=== PATIENT | male | born 1980 | race African-American/Black ===

== ENCOUNTER 2018-12-29 19:37 | Emergency (ER) | payer BC ==
[~2018-12-29] VITALS: Ht 195.6 cm; Wt 111.1 kg
[2018-12-29 19:50] VITALS: BP 146/90
--- NOTE | 2018-12-29 19:50 | NUR ---
ED Nurse Note: Pt arrived ED from home, c/o had a small laceration on his lower chin due to fell when he was playing sports today. Pt is A/O X4, Vital signs stable at this time, waiting for orders.
--- NOTE | 2018-12-29 20:04 | Emergency Room Report ---
History of Present Illness General Chief Complaint: Laceration Source: Patient Present Illness HPI Patient hit in the chin playing basketball. There is a loss of consciousness. He injured the left side of his tongue. His teeth are stable. Burning pain there. His tetanus is up-to-date. Reduce scar there from previous injury similar to this. 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 Allergies: Coded Allergies: PENICILLINS (Verified Allergy, Unknown, 12/29/18) Nursing Documentation-[facility] Past Medical History: No Stated History Physical Exam Vital Signs Date Time Temp Pulse Resp B/P (MAP) Pulse Ox O2 Delivery O2 Flow Rate FiO2 12/29/18 19:44 97.9 68 18 146/90 (108) 97 Procedures Laceration/Wound Repair Laceration/Wound Repair : Consent: Verbal Wound Location: face Wound's Depth, Shape: superficial Wound Length (cm): 3 - 2.5 Wound Explored: clean Irrigated w/ Saline (ccs): 10 Betadine Prep?: Yes Anesthesia: Lidocaine w/ Epi Volume Anesthetic (ccs): 0 - 0.5 Wound Repaired With: sutures Suture Size/Type: 6:0, proline Layer Closure?: No Sterile Dressing Applied?: Yes Splint Applied?: No Patient Tolerated: Well Complications: None Medical Decision Making Diagnostic Impression: Primary Impression: Chin laceration Qualified Codes: S01.81XA - Laceration without foreign body of other part of head, initial encounter ER Course Patient has a chin laceration. There is no loss of consciousness. The laceration needs surgical repair. The patient's tetanus is up-to-date. Tylenol will be given. Sutured. Tolerated well. Discussed treatment plan. is stable for outpatient observation and treatment. Status: improved Disposition: HOME, SELF-CARE Condition: Improved Scripts No Active Prescriptions or Reported Meds Antwan Israel MD Dec 29, 2018 20:04
[2018-12-29] MEDS ORDERED: Lidocaine 1% 10mg/ml/Epi 0.005mg/ml 30ml vial INJ ONE (20:15)
[2018-12-29] MEDS ORDERED: Bacitracin Oint UD TOPIC ONE (20:15)
--- NOTE | 2018-12-29 20:18 | NUR ---
ED Nurse Note: Meds given as ordered.
[2018-12-29 21:02] VITALS: BP 143/87
--- NOTE | 2018-12-29 21:02 | NUR ---
ER DISCHARGE NOTE: Patient is cleared to be discharged per Jhonatan. Suture done, dressing applied, meds given as ordered. Pt is aox4 on room air with stable vital signs. Pt was given dc and prescription instructions, pt was able to verbalize understanding. Pt's id band removed. Pt is able to ambulate with steady gait and took all belongings.
== END 2018-12-29 21:02 | disposition home or self-care (01) ==
LOC: EMR 21:00
DX: S01.81XA Laceration without foreign body of other part of head, initial encounter (principal); Z88.0 Allergy status to penicillin; W50.0XXA Accidental hit or strike by another person, initial encounter; Y93.67 Activity, basketball; Y92.9 Unspecified place or not applicable
CPT/HCPCS: 99282